=== PATIENT | male | born 2000 | race Caucasian/White ===

== ENCOUNTER 2023-11-21 20:31 | Emergency (ER) | payer MEDICAID, SELFPAY ==
[2023-11-21 21:25] VITALS: BP 139/84; PULSE 59; RESP 18; TEMP 36.7; O2SAT 98; BMI 22.7
[2023-11-21 22:32] VITALS: BP 121/75; PULSE 70; RESP 16; TEMP 36.6; O2SAT 97
--- NOTE | 2023-11-22 02:54 | ED.WOUNDLAC ---
HPI - Wound/Laceration General Chief Complaint: Wound/Laceration Stated Complaint: hand laceration at home Time Seen by Provider: 11/22/23 02:31 Source: patient Mode of arrival: ambulatory Limitations: no limitations History of Present Illness ED Provider: Dr. Angie Ababsi HPI narrative: Patient comes to the emergency room complaining of a laceration to the 4th and 5th finger. Patient states that he was working on a home project, and accidentally cut the dorsal aspect/fingertip of the fingers of the left hand. Patient states that he is up-to-date with his Tdap, states that he got vaccinated 1 year ago. Related Data Allergies Allergy/AdvReac Type Severity Reaction Status Date / Time No Known Allergies Allergy Verified 11/21/23 21:27 Review of Systems Review of Systems: Constitutional : No Weight loss, No Fever, No Chills, No Night Sweats, No Fatigue, No Malaise ENT/Mouth : No Hearing loss, No Ear Pain, No Nasal Congestion, No Sinus Pain, No Hoarseness, No sore throat, No Rhinorrhea, No Swallowing Difficulty Eyes: No Eye Pain, No Swelling, No Redness, No Foreign Body, No Discharge, No Vision Changes Cardiovascular : No Chest Pain, No SOB, No Dyspnea on Exertion, No Orthopnea, No Edema, No Palpitations Respiratory : No Cough, No Sputum, No Wheezing, No Smoke Exposure, No Dyspnea Gastrointestinal : No Nausea, No Vomiting, No Diarrhea, No Constipation, No abdominal Pain, No Hematochezia, No Melena Genitourinary : no irregular bleeding, No Dysuria, No Urinary Frequency, No Hematuria, No Urinary Incontinence, No Urgency, No Flank Pain, No Urinary Flow Changes, No Hesitancy Musculoskeletal : No joint pain, No Myalgias, No Joint Swelling Skin : Complaining of laceration to the 4th and 5th digits of the left hand Neuro : No Weakness, No Numbness, No Paresthesias, No Loss of Consciousness, No Dizziness, No Headache Psych : No Anxiety/Panic, No Depression, No SI/HI/AH/VH, No Social Issues, Heme/Lymph: No Bruising, No Bleeding,No Lymphadenopathy Endocrine : No Polyuria, No Polydipsia, No Temperature Intolerance PMFSH Social History Social History Smoked in Last 30 Days: No Advance Directives: No Advance Directives Information Provided: No Physical Exam Vital Signs: Vital Signs: Last Vital Signs Temp 97.8 F 11/21/23 22:32 Pulse 70 11/21/23 22:32 Resp 16 11/21/23 22:32 BP 121/75 11/21/23 22:32 Pulse Ox 97 11/21/23 22:32 O2 Del Method Room Air 11/21/23 22:32 BMI result Body Mass Index 22.7 Const: Other: Appearance: Alert. Oriented X3. No acute distress. Eyes: Pupils equal, round and reactive to light. ENT: Pharynx normal. Neck: Normal inspection. Neck supple. No lymph nodes noted. No crepitus CVS: Normal heart rate and rhythm. Pulses normal. Normal S1 and S2 Respiratory: No respiratory distress. Breath sounds normal. No Wheezing. No rales Abdomen: Soft and nontender. No rigidity. No distention. Skin: Skin warm and dry. Normal skin color. Normal skin turgor. Extremities: No lower extremity edema. No Lacerations. No Rash patient has a laceration to the tip of the 4th digit. There is a large piece of skin missing. Profuse bleeding from the 4th digit. Patient had a similar lesion on the 5th digit at the tip of the finger. However, bleeding is controlled. Patient is able to flex and extend all fingers from the hand. Neuro: Oriented X 3. No motor deficit. No sensory deficit. Moving all extremities. No slurred speech. CN 2 through 12 grossly intact Psych: calm, cooperative, normal affect Medical Decision Making Medical Decision Making MDM Narrative: Patient received 4 stitches to the 4th digit of the hand and did not require any for the 5th digit. -patient bleeding stopped. Unfortunately, there is a large gap of skin which could not be pulled back together. However, with the stitches, the bleeding stopped Procedures Laceration Laceration 1: Site: hand (Fourth finger, palmar aspect) Side (If applicable): left Size (cm): 1 Description: linear and other (1 cm by 0.5 cm piece of skin missing) Local Anesthetic: lidocaine 1% Amount of anesthesia used (mL): 10 Pre-repair: wound explored (Under a bloodless field) Skin layer closed with: nylon Size (cm): 5-0 Number of sutures: 4 Technique: simple, interrupted Discharge Plan Discharge Clinical Impression: Laceration Patient Disposition: Home, Self-Care Instructions: Laceration (ED), Care For Your Stitches (ED) Additional Instructions: Please follow-up with your primary care physician tomorrow. If you have any worsening or new symptoms, please return to the emergency room or call [phone] Print Language: Faroese
[2023-11-22 03:19] VITALS: BP 121/75; PULSE 70; RESP 16; TEMP 36.6; O2SAT 97
== END 2023-11-22 03:21 | disposition home or self-care (01) ==
PROVIDERS: Emergency Provider Emergency Medicine
DX: S61.217A Laceration without foreign body of left little finger without damage to nail, initial encounter (principal); S61.215A Laceration without foreign body of left ring finger without damage to nail, initial encounter; W45.8XXA Other foreign body or object entering through skin, initial encounter; Y93.89 Activity, other specified; Y92.009 Unspecified place in unspecified non-institutional (private) residence as the place of occurrence of the external cause; Y99.9 Unspecified external cause status
CPT/HCPCS: 12011; 99284

== ENCOUNTER 2023-11-29 14:08 | Emergency (ER) | payer SELFPAY ==
--- NOTE | 2023-11-29 14:19 | ED_ITS ---
HPI - General Adult General Chief complaint: General Medical Stated complaint: stitch removal Time Seen by Provider: 11/29/23 14:20 Source: patient Mode of arrival: ambulatory Limitations: no limitations History of Present Illness ED Provider: candi [facility] narrative: Patient is a 23-year-old male presenting for removal of sutures from left 4th finger. Patient seen in this ED on 11/21 for laceration. Denies any complications. MD complaint: suture removal Onset (ago): day(s) Associated symptoms: denies other symptoms Treatments prior to arrival: none Related Data Allergies Allergy/AdvReac Type Severity Reaction Status Date / Time No Known Allergies Allergy Verified 11/29/23 14:21 Review of Systems 2 Review of Systems: As per HPI. Yes all other systems are reviewed and are negative Constitutional: Constitutional: Reports as per HPI [facility] Social History Social History Advance Directives: No Advance Directives Information Provided: No Do you have a plan to hurt others: No Plan Physical Exam ED Vital Signs: Vital Signs - 24 hr 11/29/23 14:20 Temperature 97.9 F Pulse Rate 73 Respiratory Rate 16 Blood Pressure 105/65 Pulse Oximetry 99 Oxygen Delivery Method Room Air BMI result Body Mass Index 22.8 Vital signs have been reviewed and appear to be correct. Blood pressure normal. Heart rate normal. Respiratory rate normal. Temperature normal. Oxygen saturation normal. Const General: cooperative, healthy appearing and no acute distress Orientation/consciousness: oriented to person, oriented to place, oriented to time and patient oriented x3 Limitations: no limitations HENMT Head: Yes normocephalic and Yes atraumatic Ears: external ears normal General nose exam: Normal external nose present Face and sinus: Yes face symmetric Mouth: oropharynx normal and moist mucous membranes Throat: Yes uvula midline Eyes Pupils: Equal, round and reactive pupils present Neck Neck: Yes normal visual inspection and Yes supple Resp Effort & Inspection: normal respiratory effort and able to speak in complete sentences Auscultation: clear to auscultation bilaterally Cardio Rate: regular rate Rhythm: regular rhythm Heart sounds: S1 normal heart sound present and S2 normal heart sound present Skin General skin exam: elasticity normal and turgor normal Neuro General: oriented to person, oriented to place, oriented to time, patient oriented x3, moves all extremities, no focal motor deficits and CN's II-XI intact bilaterally Cranial nerves: Yes Equal, round and reactive pupils present Cognition (Neuro): normal cognition Extrem General: Yes full ROM, Yes no pedal edema and Yes no calf tenderness Hand/finger images: 2 1. 4 sutures, wound well healed, no erythema/warmth/drainage Psych Mental Status: mental status grossly normal Affect: normal affect Thought process: Normal thought process present Medical Decision Making Medical Decision Making [facility] Narrative: Patient is a 23-year-old male presenting for removal of sutures from left 4th finger. On exam patient is awake, A+Ox3, VS WNL, afebrile, normal neurological exam without focal deficits, physical exam findings as above. Given reported symptoms and physical exam findings, initial differential includes suture removal, cellulitis. No evidence of cellulitis on physical exam. Sutures removed without difficulty with success. Discussed ongoing wound care with patient as well as return precautions. Patient verbalized understanding of and agreement with plan. Differential Diagnosis Differential Diagnoses: The differential diagnosis associated with the presentation includes as per [facility] External Record Review External record reviewed: Inpatient record, Office record and Outpatient record Discharge Plan Discharge Clinical Impression: Visit for suture removal Patient Disposition: Home, Self-Care Instructions: Stitches Removal (ED) Additional Instructions: You were seen in the emergency department today for suture removal. Your wound appears to be healing well. Please keep the area surrounding the wound clean and dry andcover with Band-Aid until fully healed. Do not submerge in water until fully healed. Please continue to assess the wound daily. Keep the area out of direct sunlight for the next 6 months to help prevent scarring. If you develop fever, redness, swelling at the site of your laceration, or thick yellow drainage please come back to the ER for a wound check. Print Language: Citizen Of [place]
[2023-11-29 14:20] VITALS: BP 105/65; PULSE 73; RESP 16; TEMP 36.6; O2SAT 99; BMI 22.8
[2023-11-29 15:11] VITALS: BP 105/65; PULSE 73; RESP 16; TEMP 36.6; O2SAT 99
== END 2023-11-29 15:12 | disposition home or self-care (01) ==
PROVIDERS: Emergency Provider Emergency Medicine
DX: Z48.02 Encounter for removal of sutures (principal); S61.215D Laceration without foreign body of left ring finger without damage to nail, subsequent encounter; W45.8XXD Other foreign body or object entering through skin, subsequent encounter
CPT/HCPCS: 99282